=== PATIENT | female | born 1955 ===

== ENCOUNTER 2017-06-12 10:58 | Emergency (ER) | payer BC ==
[2017-06-12 11:40] VITALS: BP 143/84
--- NOTE | 2017-06-12 11:52 | UC ---
Eye Complaint HPI - HPI Summary HPI Summary: Patient was rubbing her eye yesterday, today woke up with swollen painful eyelid , no fever, no vision changes - History of Current Complaint Chief Complaint: UCEye Stated Complaint: SWELLING OF RT EYE Hx Obtained From: Patient ?: No Onset/Duration: Sudden Onset, Lasting Days - 1 Timing: Constant Severity Initially: Moderate Severity Currently: Moderate Pain Intensity: 6 Location of Injury: Eye Lid (upper) Associated Signs And Symptoms: Positive: Swelling - Allergies/Home Medications Allergies/Adverse Reactions: Allergies Allergy/AdvReac Type Severity Reaction Status Date / Time No Known Allergies Allergy Verified 06/12/17 11:40 PMH/Surg Hx/FS Hx/Imm Hx Previously Healthy: Yes - Surgical History Surgical History: Yes Surgery Procedure, Year, and Place: c-sections x2 - Family History Known Family History: Negative: Cardiac Disease, Hypertension - Social History Alcohol Use: Occasionally Substance Use Type: None Smoking Status (MU): Light Every Day Tobacco Smoker Type: Cigarettes Amount Used/How Often: approx 6/day Length of Time of Smoking/Using Tobacco: on/off 20 yrs Have You Smoked in the Last Year: Yes Review of Systems Constitutional: Negative Skin: Negative Eyes: Negative, Other - swollen and red upper eye lid ENT: Negative Respiratory: Negative Cardiovascular: Negative Gastrointestinal: Negative Genitourinary: Negative Motor: Negative Neurovascular: Negative Musculoskeletal: Negative Neurological: Negative Psychological: Negative Is Patient Immunocompromised?: No All Other Systems Reviewed And Are Negative: Yes Physical Exam Triage Information Reviewed: Yes Appearance: Well-Appearing, Well-Nourished, Pain Distress Vital Signs: Initial Vital Signs Temp 98.2 F 06/12/17 11:29 Pulse 72 06/12/17 11:29 Resp 16 06/12/17 11:29 BP 143/84 06/12/17 11:29 Pulse Ox 99 06/12/17 11:29 Vital Signs Reviewed: Yes Eyes: Positive: Other: - swollen upper right lid, slightly erythemic, painful to touch, EMOI PERRLA, no drainage ENT Exam: Normal Dental Exam: Normal Neck exam: Normal Respiratory Exam: Normal Cardiovascular Exam: Normal Abdominal Exam: Normal Bowel Sounds: Positive: Present Musculoskeletal Exam: Normal Neurological Exam: Normal Psychological Exam: Normal Skin Exam: Normal Eye Complaint Course/Dx - Course Course Of Treatment: hx obtained, exam performed, meds reviewed, treated for right upper lid cellulitis - Differential Dx/Diagnosis Differential Diagnosis/HQI/PQRI: Conjunctivitis, Keratitis, Periorbital Cellulitis, Uveitis Provider Diagnoses: right periorbital cellulitis Discharge - Discharge Plan Condition: Stable Disposition: HOME Prescriptions: Cephalexin CAP* [Keflex CAP*] 500 mg PO TID #21 cap Patient Education Materials: Periorbital Cellulitis in Adults (ED) Referrals: Non Staff,Doctor [Primary Care Provider] - Additional Instructions: 1. take the medication as prescribed. 2. Warm compresses to the area multiple times a day 3.dont rub your eye. 4. Follow up with any increase in symtpoms or vision changes
== END 2017-06-12 11:58 | disposition home or self-care (01) ==
LOC: UCCORT 10:58
DX: L03.213 Periorbital cellulitis (principal); F17.210 Nicotine dependence, cigarettes, uncomplicated
CPT/HCPCS: 99202; G0463